=== PATIENT | female | born 1960 | race Caucasian/White ===

== ENCOUNTER → 2018-04-14 | Outpatient (CLI) | payer BC ==
[~2018-04-14] VITALS: Ht 162.6 cm; Wt 120.2 kg
[~2018-04-14] MED LIST: ACETAMINOPHEN-1 EAC1 PO; ACYCLOVIR 400400 MG PO; ADULT LOW DOSE81 MG PO; AUGMENTIN 875875 MG PO; AZITHROMYCIN 2250 MG PO; CALCIUM 500 +1 EAC4 PO; CIPRO500 MG PO; CIPROFLOXACIN500 M3 GT; COLESTIPOL HCL1 G1 PO; COUMADIN 2 MG TA2 M1 PO; COUMADIN 3 MG TA3 M1 PO; COUMADIN 3 MG TA3 MG PO; COZAAR100 MG PO; DESIPRAMINE 50M50 M1 PO; DYAZIDE PO; FISH OIL 1,001000 MG PO; FLAGYL500 MG PO; HCTZ; HYDRALAZINE 2525 MG PO; HYDROCHLOROTHIA25 M2 PO; HYDROCODON-ACE1 EAC7 PO; HYDROCODONE-APA1 TA1 PO; IBUPROFEN 800800 M1 PO; LEVOXYL125 MCG PO; LEXAPRO; LEXAPRO20 MG PO; LIPITOR 20 MG T20 M1 PO; LIPITOR40 MG PO; LISINOPRIL20 MG PO; LISINOPRIL40 MG PO; LOPRESSOR PO; MEDROLDOSEPACK PO; NORCO 5-325 TA1 EACH PO; NORFLEX100 MG PO; NORVASC10 MG PO; NORVASC5 MG PO; OSCIMIN0.125 M1 PO; PEPCID40 MG PO; PERCOCET 5-3251 EACH PO; POTASSIUM20; PREDNISONE 20 M20 M1 PO; PREMARIN0.3 MG PO; PRINIVIL20 MG PO; PROMETHAZINE-C120 ML PO; PROTONIX40 M2 PO; PROZAC; ROBAXIN 750 MG750 M1 PO; RYTHMOL; RYTHMOL SR325 MG PO; SAVELLA50 MG PO; SIMVASTATIN40 MG PO; SORINE 80 MG TA80 M1 PO; SORINE 80 MG TA80 MG PO; SPIRONOLACTONE50 MG PO; SYNTHROID PO; SYNTHROID125 MCG PO; TESSALON PERLE100 M1 PO; TOPROL XL25 MG PO; TRAMADOL 50 MG50 MG PO; ULTRAM 50MG TAB50 MG PO; WELLBUTRIN XL150 MG PO; XARELTO20 MG PO; ZOFRAN ODT4 MG PO; ZOFRAN4 MG PO
--- NOTE | ~2018-04-14 | HPC ---
[facility] [address] [place] [address] PAIN MANAGEMENT CONSULTATION Name: BERTIN CHRISTIE Room #: REG ANDERKristen Diane.#: [id number] Admission: 04/14/18 Attend Phys: Issa Nova MD Discharge: Date of : 62 Report #: [id number] THIS REPORT FOR: //name// CC: Daniela Nova DATE OF SERVICE: 04/14/2018 CHIEF COMPLAINT: Back and leg pain. HISTORY OF PRESENT ILLNESS: The patient is a 57-year-old female who has been referred to the pain clinic for evaluation of back and leg pain. The patient states that her pain is in the low back area. She describes it as sharp. States that she stepped on a cement divider in the parking lot. She fell down onto her buttocks area. She has been having pain and discomfort, which has been quite problematic since that time. Notes that the pain is worse while sitting as well as lying down, walking can be problematic, bending is problematic. Pain is better if she is sitting for a short period of time. Lying down at times can be helpful for a short periods of time. Rates her pain as a 9-10. Sometimes feels like it is 10 or greater. Describes it as continuous, steady, constant, rhythmic, burning, shooting, aching, crushing, throbbing and stabbing. Most of the pain and discomfort involves the left side. Denies any back surgeries. Denies any bowel or bladder changes. States that she had gone through some physical therapy without long-term benefit. Has tried medications like Tylenol without significant improvement. The patient has atrial fibrillation and is on a blood thinner medication, so she is not taking nonsteroidal anti-inflammatory medications. ALLERGIES: No known drug allergies. MEDICATIONS: Xarelto 20 mg, spironolactone 50 mg, levothyroxine 0.125 b.i.d., Lexapro 20 mg, total of 40 mg daily, sotalol 80 mg b.i.d., Norvasc 5 mg, Cozaar 100 mg, Wellbutrin 150 mg, hydralazine 25 mg t.i.d. PAST MEDICAL HISTORY: Atrial fibrillation, obstructive sleep apnea, hypothyroidism, hypertension, depression/anxiety, right carotid artery disease, heart murmur, irritable bowel syndrome, diverticulosis, osteopenia on DEXA, 01/24/2018, degenerative joint disease of lumbar radicular history. Severe diverticulitis -- GI bleed, 03/2017. SURGICAL HISTORY: 1. section. 2. Hysterectomy. 3. Plates in left foot. 4. Right shoulder, 12/15/2014[place] [address] PAIN MANAGEMENT CONSULTATION Name: BERTIN CHRISTIE MARLINE Room #: REG ERIN Cabrales#: [id number] Admission: 04/14/18 Attend Phys: Issa Nova MD Discharge: Date of : 62 Report #: [id number] 5. Cholecystectomy. 6. Tonsillectomy. 7. Lumpectomy of left breast. 8. Eye surgery. FAMILY HISTORY: Mother was at age 74 with COPD, stroke, coronary artery disease. Father at age 64 with lung disease, emphysema, colon cancer. Sister alive and brother alive, both bipolar, heart attack. Daughter alive. Son alive. Three brothers, three sisters, one son and one daughter. One brother by myocardial infarction. SOCIAL HISTORY: She is a customer host. She has been off work. Has not worked since 04/06/2018. She is currently hog worker's compensation. REVIEW OF SYSTEMS: General, a 12-point review generally well, recent weight change, fever/night sweats, wears glasses/contacts, glaucoma. The patient has had eye surgery. Cardiovascular: Atrial fibrillation, nervousness, depression, thyroid disease. LABORATORY DATA: MRI of lumbar spine dated 02/05/2018 reveals: 1. Axial views at L5-S1 showed no focal disk protrusion. Central canal and neural foramen are maintained. There is facet spurring with mild to moderate facet degenerative change. There is some ligamentum flavum hypertrophy. L4-L5 shows facet spurring and degenerative changes with some ligamentum flavum hypertrophy. There is no focal disk protrusion. Central canal shows minimal triangular narrowing. Neural foramen are maintained. Central canal measures 10 mm. 2. L3-L4 shows no focal disk protrusion. Central canal and neural foramen are maintained. There is mild facet degenerative change with ligamentum flavum hypertrophy. L2-L3 shows no focal disk protrusion. Central canal and neural foramen are maintained. A large right mid region kidney cyst is noted measuring 3.3 x 2.4 cm. Multiple left kidney ducts or cysts are seen with medial measuring 16 mm and lateral measuring 15 mm. PAIN CLINIC ASSESSMENT: 1. History of osteoarthritis. The patient has been diagnosed with degenerative joint disease in the low back area. 2. Height 5 feet 4 inches. Weight 265 pounds, BMI is 45. 3. VITAL SIGNS: Blood pressure 146/73, pulse 60, respiratory rate 20, room air saturation 98%. 4. Pain intensity /10. 5. Fall risk. The patient fell in the last 3 months, landing on her buttocks with pain in the low back area at this juncture. 6. Blood thinner. The patient is on Xarelto. 7. Hypertension. The patient is being treated for hypertension. 8. Opioid therapy. The patient is not on an opioid contract. [facility] [address] [place] [address] PAIN MANAGEMENT CONSULTATION Name: BERTIN CHRISTIE MARLINE Room #: REG [facility].#: [id number] Admission: 04/14/18 Attend Phys: Issa Nova MD Discharge: Date of : 62 Report #: [id number] 9. Risk assessment tool 11/11 low risk. 10. Functional assessment showing moderate problems with activities of daily living secondary to pain. 11. Recreational drug use. The patient denies use of recreational drugs. 12. Tobacco: The patient has never smoked cigarettes. 13. Alcohol: The patient denies use of alcoholic beverages. PHYSICAL EXAMINATION: GENERAL: The patient is a well-developed, somewhat obese white female. She is alert and oriented x 3. Affect appears appropriate. Speech is fluent. HEENT: Normocephalic, atraumatic. Extraocular eye muscles intact. Sclerae are nonicteric. Hearing within normal limits. Mucous membranes are moist ____. NECK: Without adenopathy or bruits, reasonable range of motion. CHEST: Clear to auscultation and distant lung sounds given the patient's body habitus. ABDOMEN: Protuberant. MUSCULOSKELETAL: Without significant scoliosis, kyphosis or lordosis. The patient has some pain and discomfort in the left as well as in the right posterior superior iliac spine areas and along the L4-5/S1 dermatomal distribution. Muscle strength in the upper extremities is judged to be 5/5 for the major muscle groups in the upper extremity. Deep tendon reflexes are +1 for the biceps bilaterally. Difficult to appreciate triceps and brachioradialis. Tendon reflexes asymmetry is noted in the upper extremities without complaints of sensory deficits. Lower extremity without sensory deficits. Muscle strength is judged to be 5/5 for the major muscle groups. Deep tendon reflexes are +2 at the knees and +1 to trace at the ankles bilaterally. The patient has some skin changes with some darkening on the anterior portions of her shins somewhat consistent with pigmentation from multiple bruises over a number of years. Has a somewhat new bruise in the anterior hoffman area on the left. Forward bending to about 30 degrees causes the patient to phonate and complaining of significant pain in the low back area. Left and right lateral bending, left and right lateral rotation, which were all limited secondary to the patient's body habitus, this caused a similar pouring of phonation secondary to pain and discomfort by the patient. The patient noted some increased back discomfort with the Александр's maneuver. Anterior spring test was negative. Lateral spring test was negative. Left and right lateral leg held in a dependent position on the right cause some increased low back discomfort. The patient was unable to let the left leg hang in a dependent position secondary to increased pain in the low back area. The patient has had some difficulty standing on her toes, unable to walk or stand on her heels. No true L5-S1 or L4-L5 dermatomal distribution with sensory changes were noted. Palpation in the area of the posterior superior iliac spine on the left and the right reproduces the patient's discomfort. She recoiled in a fashion consistent with trigger point pain and discomfort. IMPRESSION: [facility] [address] [place] [address] PAIN MANAGEMENT CONSULTATION Name: BERTIN CHRISTIE Room #: LITO Cabrales#: [id number] Admission: 04/14/18 Attend Phys: Issa Nova MD Discharge: Date of : 62 Report #: [id number] 1. Myofascial pain, low back area with trigger point. 2. Atrial fibrillation. 3. Obesity. 4. Obstructive sleep apnea. 5. Hypothyroidism. 6. Hypertension. 7. Depression/anxiety. 8. Irritable bowel syndrome. 9. Diverticulitis with history of gastrointestinal bleed. 10. Osteopenia. 11. Degenerative joint disease with findings as listed in the MRI above. RECOMMENDATIONS: We have discussed treatment options with the patient. Risks and benefits of a trigger point injection were discussed. Possible complications of the procedure were reviewed. 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 If she is able to decrease her use of Xarelto for a week, she will return to the pain clinic at which time she will undergo trigger point injections for the myofascial pain. It appears that is more myofascial at this juncture than radiculopathy. She is not showing significant changes of L4-L5 or L5-S1 dermatomal findings at this juncture. She will follow up in the pain clinic for treatment in the near future. <ELECTRONICALLY SIGNED> By: Issa Nova MD 04/21/18 1332 [id number] 2036 Issa Nova MD /[facility]
[2018-04-14 10:21] VITALS: BP 146/73
== END ==
LOC: PAIN 06:47
DX: M47.816 Spondylosis without myelopathy or radiculopathy, lumbar region (principal); I48.91 Unspecified atrial fibrillation; E03.9 Hypothyroidism, unspecified; M85.80 Other specified disorders of bone density and structure, unspecified site; M79.1 Myalgia; K57.92 Diverticulitis of intestine, part unspecified, without perforation or abscess without bleeding; K58.9 Irritable bowel syndrome, unspecified; G47.33 Obstructive sleep apnea (adult) (pediatric); E66.09 Other obesity due to excess calories; F32.9 Major depressive disorder, single episode, unspecified; F41.9 Anxiety disorder, unspecified

== ENCOUNTER → 2018-04-23 | Outpatient (CLI) | payer BC ==
[~2018-04-23] VITALS: Ht 162.6 cm; Wt 122.2 kg
--- NOTE | ~2018-04-23 | HPC ---
[facility] [address] [place] [address] PAIN MANAGEMENT CONSULTATION Name: BERTIN CHRISTIE MARLINE Room #: REG ERIN Cabrales#: [id number] Admission: 04/23/18 Attend Phys: Issa Nova MD Discharge: Date of : 62 Report #: [id number] THIS REPORT FOR: //name// CC: Daniela Nova DATE OF SERVICE: 04/23/2018 FOLLOWUP COMPLAINT: "Here for an injection in my back. My doctor said I could stop the Xarelto." FOLLOWUP HISTORY: The patient is a 57-year-old female, who has been seen in the pain clinic because of pain and discomfort in her back. She states that she has pain, which she describes as quite sharp. It is aching. Limits her ability to engage in activities of daily living. As you recall, she was walking. She slipped in a parking lot. Fell on a cement divider. She landed on her buttocks. She has had pain and discomfort, which continues to be problematic. Limited in her ability to bend forward. Sleeping is problematic, getting in and out of bed is difficult. Sitting for a prolonged period of time is uncomfortable as well. Rates her pain as an 8-9/10. Denies any problems with her bowel or bladder. As you recall, she has undergone physical therapy without significant benefit. Has atrial fibrillation and is on Xarelto. She has spoken with her cardiac physician. He states that she can stop her Xarelto. She has stopped it and has returned to the pain clinic for treatment. ALLERGIES: No known drug allergies. CURRENT MEDICATIONS: Xarelto 20 mg, which has been held, spironolactone 50 mg, levothyroxine 0.125 mg b.i.d., Lexapro 20 mg total of 40 mg daily, sotalol 80 mg b.i.d., Norvasc 5 mg, Cozaar 100 mg, Wellbutrin 150 mg, hydralazine 25 mg t.i.d. PAIN CLINIC ASSESSMENT: 1. History of osteoarthritis. The patient has been diagnosed with degenerative joint disease in the low back area. 2. Height 5 feet 4 inches, weight 269 pounds, BMI is 46. 3. Vital Signs: Blood pressure 157/79, pulse 60, respiratory rate 18, room air saturation 97%. 4. Pain intensity 8-07/19. 5. Fall risk. The patient fell landing on her buttocks and as a result continues to have pain. 6. Blood thinning medication. The patient is on Xarelto as a blood thinner. She has not taken it for a number of days with preparation for an injection. 7. History of hypertension. The patient is being treated for hypertension. 8. Opioid therapy. The patient is not on an opioid regimen. 9. Risk assessment tool 11/11, which is low for use of opioids. 10. Functional assessment tool showing pain and problems with activities [address] [address] PAIN MANAGEMENT CONSULTATION Name: BERTIN CHRISTIE MARLINE Room #: REG [facility] Keron#: [id number] Admission: 04/23/18 Attend Phys: Issa Nova MD Discharge: Date of : 62 Report #: [id number] of daily living because of the pain. 11. Recreational drug use. The patient denies use of recreational drugs. 12. Tobacco: The patient has never smoked. 13. Alcohol: The patient denies use of alcoholic beverages. PHYSICAL EXAMINATION: GENERAL: The patient is a well-developed, well-nourished white female. Somewhat obese. She is alert and oriented x 3. Her affect is appropriate. Speech is fluent. HEENT: Normocephalic, atraumatic. Extraocular eye muscles intact. Sclerae nonicteric. Hearing is within normal limits. Mucous membranes are moist. NECK: Without adenopathy or bruits, reasonable range of motion. CHEST: Clear to auscultation. Distant sounds. Given the patient's body habitus. HEART: Regular rate and rhythm. ABDOMEN: Protuberant. MUSCULOSKELETAL: Without significant kyphosis, lordosis, or scoliosis. The patient has pain and discomfort in the lower portion of her back. Palpation in the left posterior superior iliac spine area and right posterior superior iliac spine area, both caused significant pain and discomfort. The patient is able to bend forward to about 35 degrees then complains of pain and discomfort in the lower portion of her back and limits her continued flexibility. Muscle strength in the upper extremities judged to be 5/5 for the major muscle groups. Deep tendon reflexes +2 at the knees. Trace at the ankles bilaterally. The patient has some changes in pigmentation of the anterior portion of her legs, which appears to be consistent with that which results from chronic bruising. IMPRESSION: 1. Myofascial pain, lower back area with trigger points, left and right. 2. Atrial fibrillation. 3. Obesity. 4. Obstructive sleep apnea. 5. Hypothyroidism. 6. Hypertension. 7. Depression/anxiety. 8. Irritable bowel syndrome. 9. Diverticulitis with history of gastrointestinal bleed. 10. Osteopenia. 11. Degenerative joint disease. RECOMMENDATION: We discussed treatment options with the patient. The patient has myofascial pain as a component at this juncture. It involves the left as well as the right low back area. Palpation in the area of the left posterior superior iliac spine area and gluteus raeann and latissimus dorsi cause reproduction of pain and discomfort on the left as well as on the right. We have discussed the possible complication of the procedure. Discussed the [facility] [address] [place] [address] PAIN MANAGEMENT CONSULTATION Name: SHAHNAZBERTIN MARLINE Room #: REG ERIN Cabrales#: [id number] Admission: 04/23/18 Attend Phys: Issa Nova MD Discharge: Date of : 62 Report #: [id number] possible consequences, which could include infection, increased muscle soreness, headache, worsening of pain, bleeding. The patient elects to proceed. PROCEDURE NOTE: The patient was placed in the sitting position. Her back was sterilely prepped with the chlorhexidine solution and allowed to dry. The left posterior superior iliac spine area near the gluteus raeann and latissimus dorsi were palpated. The trigger point was noted. A 25-gauge needle was then advanced into the area of discomfort. After the patient stated that we were indeed in the trigger point area, an aspiration was performed. There was no bleeding. A total of 80 mg Depo-Medrol and 10 mL of 0.5% bupivacaine was injected. The contralateral right side was treated in a like fashion. The trigger point was identified in the area of the gluteus raeann posterior superior iliac spine and latissimus dorsi. After appropriate identification, a 25-gauge needle was advanced into this area. The patient states that this was in the area of the trigger point. Aspiration was performed. There was no heme. Total of 80 mg Depo-Medrol and 10 mL of 0.5% bupivacaine was injected. The patient tolerated the procedure well. There were no complications. A Band-Aid was placed at the site. The patient was then taken to the recovery room where she remained for an appropriate amount of time. She will follow up in the future as needed. We would like to thank you for letting us participate in her care. We hope she continues to improve. The patient's pain decreased to 5 at the time of discharge. <ELECTRONICALLY SIGNED> By: Issa Nova MD 04/29/18 0936 1356 1830 Issa Nova MD /nt
[2018-04-23 10:46] VITALS: BP 157/79
== END ==
LOC: PAIN 06:48
DX: M79.1 Myalgia (principal); I10 Essential (primary) hypertension; I48.91 Unspecified atrial fibrillation; G47.33 Obstructive sleep apnea (adult) (pediatric); E03.8 Other specified hypothyroidism; M85.80 Other specified disorders of bone density and structure, unspecified site; K58.8 Other irritable bowel syndrome; F31.89 Other bipolar disorder; E66.9 Obesity, unspecified; Z79.899 Other long term (current) drug therapy; E78.4 Other hyperlipidemia

== ENCOUNTER → 2018-05-28 | Outpatient (CLI) | payer BC ==
[~2018-05-28] VITALS: Ht 162.6 cm; Wt 123.8 kg
--- NOTE | ~2018-05-28 | HPC ---
[facility] [address] [place] [address] PAIN MANAGEMENT CONSULTATION Name: BERTIN CHRISTIE MARLINE Room #: REG ERIN Diane.#: [id number] Admission: 05/28/18 Attend Phys: Issa Nova MD Discharge: Date of : 62 Report #: [id number] THIS REPORT FOR: //name// CC: Daniela Nova DATE OF SERVICE: 05/28/2018 FOLLOWUP COMPLAINT: The pain was better for a number of days. "I am still having some pain in the left and right low back area. I have been going to physical therapy. Physical therapy is hard. Overall, I think things are getting somewhat better, but still really slowly." FOLLOWUP HISTORY: As you recall, the patient is a 58-year-old female. States that she was getting out of her car. She stepped out and fell on a concrete divider. Continues to have pain and discomfort in the sacral area. Denies any pain that is radiating down into her legs. She rates her pain as a 6/10 at this juncture. She has not fallen since we saw her last. Still feels that she is unable to engage in activities of daily living to the level that she would like. She has stopped her Xarelto with the intent of undergoing injections or treatment today. ALLERGIES: No known drug allergies. MEDICATIONS: Xarelto 20 mg, which has been held, spironolactone 50 mg, levothyroxine 0.125 mg b.i.d., Lexapro 20 mg for a total of 40 mg daily, sotalol 80 mg b.i.d., Norvasc 5 mg, Cozaar 100 mg, Wellbutrin 150 mg, and hydralazine 25 mg t.i.d. PAIN CLINIC ASSESSMENT: 1. History of osteoarthritis. The patient has been diagnosed with degenerative joint disease in her low back. 2. Height 5 feet 4 inches, weight 273 pounds, BMI is 46. 3. Vital signs: Blood pressure 201/104, pulse 60, respiratory rate 16, room air saturation 98%. The patient states that her blood pressures are normally in the 150s range. States that she does experience increased nervousness when going to the physician's office. 4. Pain intensity 04/18. 5. Fall risk. The patient did fall within the last 3 months and has pain and discomfort in the low back area. 6. Blood thinner. The patient has been using Xarelto for atrial fibrillation. She is not on it at this juncture with the intent on undergoing an injection. 7. History of hypertension. The patient is being treated for hypertension. 8. Opioid therapy greater than 6 weeks. The patient is [place] [address] PAIN MANAGEMENT CONSULTATION Name: BERTIN CHRISTIE MARLINE Room #: REG CLI Keron#: [id number] Admission: 05/28/18 Attend Phys: Issa Nova MD Discharge: Date of : 62 Report #: [id number] 9. Risk assessment tool 11/11. 10. Functional assessment tool . 11. Recreational drug use. The patient denies use of recreational drugs. 12. Tobacco: The patient denies use of tobacco. She has never smoked. 13. Alcohol. The patient denies frequent use of alcoholic beverages. PHYSICAL EXAMINATION: GENERAL: The patient is a well-developed, somewhat obese white female, appears her stated age. She is alert and oriented x 3. Her affect is appropriate. Speech is fluent. HEENT: Normocephalic, atraumatic. Extraocular eye muscles intact. Sclerae nonicteric. Hearing is within normal limits. Mucous membranes are moist. NECK: Without adenopathy or bruits with reasonable range of motion. CHEST: Clear to auscultation. Distant heart sounds difficult to appreciate secondary to the patient's body habitus. HEART: Regular rate and rhythm. ABDOMEN: Protuberant. MUSCULOSKELETAL: Without significant kyphosis, lordosis, or scoliosis. The patient has pain and discomfort in lower portion of her back. Palpation in the area of the left and right posterior superior iliac spine areas does reproduce pain and discomfort. The patient denies any significant pain radiating down into her legs in a dermatomal distribution. Muscle strength in the upper extremity judged to be 5/5 for the major muscle groups. Deep tendon reflexes +2 at the knees, trace at the ankles bilaterally. The patient notes some pigmentation changes in the anterior portion of her legs, which appear to be from chronic bruising. IMPRESSION: 1. Myofascial pain, lower back, improved with trigger point injections left as well as the right. 2. Atrial fibrillation. 3. Obesity. 4. Obstructive sleep apnea. 5. Hypothyroidism. 6. Hypertension. 7. Depression/anxiety. 8. Irritable bowel syndrome. 9. Diverticulitis with history of gastrointestinal bleed. 10. Osteopenia. 11. Degenerative joint disease. RECOMMENDATIONS: We discussed treatment options with the patient. She continues to have some pain and discomfort in the low back area. She did note some improvement with the injections as well as with physical therapy. The patient has been advised that physical therapy is going to be quite important in her recovery. We explained that myofascial pain can be somewhat involved in its [address] [address] PAIN MANAGEMENT CONSULTATION Name: BERTIN CHRISTIE Room #: REG [facility] [id number] Admission: 05/28/18 Attend Phys: Issa Nova MD Discharge: Date of : 62 Report #: [id number] course. Hopefully, she will notice that things continue to improve. We have explained that another injection in the trigger point areas could be beneficial. She states that she has stopped taking Xarelto in hopes of proceeding with another injection. She had no complication from the last injection. Has not noticed any concerns with use of the steroid injections. PROCEDURE NOTE: The patient was taken to the procedure area. Risks and benefits of the procedure were again reviewed. They include but are not limited to infection, worsening of pain, no improvement in pain, and nerve damage. The patient elects to proceed. PROCEDURE NOTE: She was placed in the sitting position. Her back was sterilely prepped with a chlorhexidine solution and allowed to dry. A trigger point was noted in the left posterior superior iliac spine area near the gluteus raeann and latissimus dorsi. A 25-gauge needle was then advanced into this area. The patient states that this did reproduce her discomfort. Total of 8 mL 0.5% bupivacaine and 60 mg steroid 20 mg triamcinolone, and 40 mg Depo-Medrol was injected on the left side and the right side was sterilely prepped in the same fashion. Trigger point was noted. A 25-gauge needle was then advanced into the area of discomfort. The patient states that this reproduced her discomfort. Total of 60 mg steroid 20 mg triamcinolone/40 mg Depo-Medrol was injected. The patient tolerated the procedure well. She remained in the pain clinic for an appropriate amount of time. She will follow up in the future as needed. We would like to thank you for letting us participate in her care. She will continue with physical therapy. By: 1602 2037 Issa Nova MD /[facility]
[2018-05-28 08:03] VITALS: BP 201/104
== END | disposition home or self-care (01) ==
LOC: PAIN 06:46
DX: M79.1 Myalgia (principal); I10 Essential (primary) hypertension; E03.9 Hypothyroidism, unspecified; I48.91 Unspecified atrial fibrillation; E66.09 Other obesity due to excess calories; G47.33 Obstructive sleep apnea (adult) (pediatric); F32.9 Major depressive disorder, single episode, unspecified; F41.9 Anxiety disorder, unspecified; M19.90 Unspecified osteoarthritis, unspecified site; M81.0 Age-related osteoporosis without current pathological fracture; Z79.01 Long term (current) use of anticoagulants; Z87.19 Personal history of other diseases of the digestive system; Z79.899 Other long term (current) drug therapy; Z79.891 Long term (current) use of opiate analgesic; Z68.42 Body mass index [BMI] 45.0-49.9, adult

== ENCOUNTER → 2018-09-03 | Outpatient (CLI) | payer BC ==
[~2018-09-03] VITALS: Ht 162.6 cm; Wt 112.5 kg
[~2018-09-03] MED LIST changes: +OZEMPIC0.25 MG/0. SUBQ; +PROPAFENONE 15150 MG PO; +SYNTHROID112 MC1 PO; +TYLENOL EXTRA500 MG PO
[2018-09-03 13:18] VITALS: BP 117/59
== END | disposition home or self-care (01) ==
LOC: PAIN 07:28
DX: M79.18 Myalgia, other site (principal); I10 Essential (primary) hypertension; I48.91 Unspecified atrial fibrillation; E78.5 Hyperlipidemia, unspecified; Z79.899 Other long term (current) drug therapy; Z79.01 Long term (current) use of anticoagulants

== ENCOUNTER → 2018-10-18 | Outpatient (CLI) | payer BC ==
[~2018-10-18] MED LIST changes: +CENTANY30 GM TOP; +CYMBALTA30 MG PO; +METOPROLOL SUCC50 MG PO; +PRADAXA150 MG PO; +VIBRAMYCIN 100100 M2 PO
[2018-10-18 07:43] LABS: HEMATOCRIT 38.8 % (37.0-47.0); HEMOGLOBIN 13.2 gm/dL (12.0-15.0); MCH 30.2 pg (26.0-34.0); MCHC 34.1 g/dL (28.0-37.0); MCV 88.6 fL (80.0-100.0); RBC 4.38 mil/uL (4.20-5.00); RDW 13.8 % (10.5-14.5); WBC 4.8 thou/uL (4.0-11.0)
[2018-10-18 08:00] LABS: ALBUMIN 3.6 g/dL (3.4-5.0); CALCIUM 9.1 mg/dL (8.5-10.1); CREATININE 0.8 mg/dL (0.6-1.0); POTASSIUM 4.4 mmol/L (3.5-5.1); TOTAL BILIRUBIN 0.4 mg/dL (<0.1-1.0)
== END ==
LOC: CAT 07:14
PROVIDERS: Internal Medicine Cardiovascular Disease
DX: I48.91 Unspecified atrial fibrillation (principal); K86.89 Other specified diseases of pancreas; M47.814 Spondylosis without myelopathy or radiculopathy, thoracic region

== ENCOUNTER 2018-11-03 06:33 | Observation (INO) | payer BC ==
[~2018-11-03] VITALS: Ht 162.6 cm; Wt 111.6 kg
[2018-11-03] VITALS (12 sets, daily range): BP systolic 103–160; BP diastolic 56–89
[2018-11-03] MEDS ORDERED: SYNTHROID125 MC1 PO (07:17)
[2018-11-03 07:20] LABS: ABSOLUTE NEUTROPHILS 3.1 thou/uL (1.4-8.2); HEMOGLOBIN 13.7 gm/dL (12.0-15.0)
[2018-11-03 07:21] LABS: BASOPHILS 0.7 % (0.0-2.0); EOSINOPHILS 1.4 % (0.0-3.0); HEMATOCRIT 40.5 % (37.0-47.0); LYMPHOCYTES 28.8 % (24.0-44.0); MCHC 33.8 g/dL (28.0-37.0); MCV 88.7 fL (80.0-100.0); MONOCYTES 7.7 % (1.0-8.0); PLATELET COUNT 215 thou/uL (150-400); POLYS 61.4 % (36.0-66.0); RBC 4.57 mil/uL (4.20-5.00); RDW 14.4 % (10.5-14.5); WBC 5.1 thou/uL (4.0-11.0)
[2018-11-03] MEDS ORDERED: PRADAXA150 MG PO (07:21)
[2018-11-03 07:27] LABS: CALCIUM 9.1 mg/dL (8.5-10.1); CREATININE 0.9 mg/dL (0.6-1.0); POTASSIUM 3.5 mmol/L (3.5-5.1)
[2018-11-03 07:32] LABS: ALBUMIN 3.8 g/dL (3.4-5.0); TOTAL BILIRUBIN 0.9 mg/dL (<0.1-1.0)
[2018-11-03 07:46] LABS: PROTIME 9.7 Seconds (9.3-11.4)
--- NOTE | 2018-11-03 18:42 | NUR ---
ASSESSMENT DOCUMENTED. VSS. NSR ON THE MONITOR. PAIN IN BACK FROM REPORTED CHRONIC BACK PAIN. NO S/SX OF RETROPERITONEAL BLEED. R GROIN CDI. PT OFF BEDREST AT 1830. PT SITTING ON SIDE OF BED WITH CALL LIGHT IN REACH. WILL CONTINUE TO MONITOR.
[2018-11-04 00:35] VITALS: BP 140/70
[2018-11-04 00:55] VITALS: BP 140/70
[2018-11-04] MEDS ORDERED: NORCO 5-325 TA1 EACH PO (01:09)
--- NOTE | 2018-11-04 03:22 | NUR ---
23:00> PAIN RE-ASSESSMENT AFTER ACETAMINOPHEN; PT. WITH CLOSE EYES; 23:35> PT. REQUESTED PAIN MEDICATION; EXPLAINED THAT IT IS NOT TIME DUE TO ACETAMINOPHEN IS ORDERED Q4H AND IT WAS GIVEN AROUND 21:00; HYDROCONE ORDERED Q6H AND GIVEN AROUND 18:30; PT. EXPRESS UNDERSTANDING. 00:50> NURSE INFORMED PT. REQUESTED PAIN MEDICATION; ORDERED REVIEWED; PT. EXPRESSED BACK AND R. LEG PAIN, REQUESTED HYDROCONE, NURSE ASKED MEDICATION TAKEN AT HOME, PT REPLIED ACETAMINOPHEN AND 2 HYDROCONE 5-325 MG PRN; MEDICATION NOT LISTED ON HOME MEDICATION LIST; PT ST "I DO NOT TAKE IT FREQUENTELY, THAT IS WHY I DID NOT LIST IT"; NURSE EXPLAINED THE IMPORTANCE OF MAINTAINING AN UPDATED HOME MEDICATION LIST. 01:05> 2 HYDROCONE 5-325 MG GIVEN; NURSE ASKED THE LAST TIME OF TAKEN HYDROCONE AT HOME; PT. RAISED VOICE AND SHOWED IRRITABILITY; NURSE EXPLAINED IT IS IMPORTANT; PT. REQUESTED NURSE TO SHUT THE COMPUTER DOWN AND LEAVE THE ROOM; NURSE ASKED PT. IF DESIRE CHARGE NURSE IN ROOM; PT. ST "YES"; NURSE LEFT AND CHARGE NURSE INFORMED.
[2018-11-04 04:53] VITALS: BP 161/80
[2018-11-04] MEDS ORDERED: FLECAINIDE ACET50 M1 PO (09:00)
[2018-11-04 09:45] VITALS: BP 175/77
--- NOTE | 2018-11-04 10:21 | NUR ---
ASSESSMENT CHARTED - MEDS PER JAN - NO CO'S OF NAUSEA - LILLY DIET AND FLUIDS. GIVEN LORTAB FOR CO'S OF BACK/LEG PAIN WITH MOD RELIEF. PT UP AD LUCIANA IN ROOM. PT HOME THIS AM - INSTRUCTION RE HOME MEDS/ CARE /FOLLOW UP GIVEN TO PATIENT - STATED UNDERSTANDING OF INSTRUCTION GIVEN. MONITOR AND IV REMOVED PRIOR TO D/C. NO CO'S AT TIME OF D/C.
--- NOTE | 2018-11-05 15:02 | EKG ---
[address] [address] ELECTROCARDIOGRAM REPORT Name: BERTIN CHRISTIE MARLINE Room #: 209-P [facility].#: [id number] Admission: 11/03/18 Attend Phys: Matthew Harris MD Discharge: 11/04/18 Date of : 62 Report #: [id number] THIS REPORT FOR: //name// [facility] Test Date: 2018-11-03 Test Time: 13:16:51 Pat Name: BERTIN CHRISTIE Department: Room: 209 Gender: F Cleat Maker: SOL : 1960 Requested By: Matthew Harris Order Number: [id number] MD: Matthew Harris Measurements Intervals [place] Rate: 63 P: 5 NE: 157 QRS: -27 QRSD: 106 T: -58 QT: 471 QTc: 483 Interpretive Statements Sinus rhythm LVH with secondary repolarization abnormality No previous ECG available for comparison Electronically Signed On 11-05-2018 15:02:12 TELEVISION MAINTENANCE WORKER by Matthew Harris [email or web address] <ELECTRONICALLY SIGNED> By: Matthew Harris MD 11/05/18 1502 1316 15 Matthew Harris MD /DYLAN
--- NOTE | 2018-11-12 14:52 | D ---
[facility] [place] [address] DISCHARGE SUMMARY Name: BERTIN CHRISTIE MARLINE Room #: 209-P [facility] Dick MFawn#: [id number] Admission: 11/03/18 Attend Phys: Matthew Harris MD Discharge: 11/04/18 Date of : 62 Report #: [id number] THIS REPORT FOR: //name// CC: Mustapha Mccoy'David Harris DISCHARGE DIAGNOSIS: Paroxysmal atrial fibrillation. PROCEDURES PERFORMED: AFib ablation. HISTORY: The patient is a 58-year-old with a history of paroxysmal atrial fibrillation who has had recurrence despite antiarrhythmic drugs. She is here for an ablation. Today, she underwent successful isolation of the pulmonary veins. She had evidence of a left common ostium in the right superior and right inferior pulmonary vein, which were all successfully isolated using the cryoballoon. Post-ablation and EP study was performed on isoproterenol and she had no other inducible arrhythmias. HOSPITAL COURSE: Post-ablation, the patient went to the PACU and then subsequently to the CCU. She did well overnight. On the day of discharge, she denied any chest pain or shortness of breath. She had some mild right groin discomfort. PHYSICAL EXAMINATION: GENERAL: She was in no acute distress. HEENT: Oropharynx is clear. NECK: Supple with no thyromegaly. HEART: Regular rate and rhythm with no murmurs, rubs, gallops. LUNGS: Clear to auscultation bilaterally. ABDOMEN: Soft, nontender and her groin demonstrated some mild ecchymosis, but no hematoma. Telemetry revealed that she remained in sinus rhythm. As such, she was deemed stable for discharge home. The plans will be to continue on Pradaxa 150 mg b.i.d. She will also switch from propafenone, which is a t.i.d. drug to flecainide 50 b.i.d., which will be easier for her to take. She has had some intermittent hemorrhoidal bleeding on blood thinners in the past and she will call us if this becomes an issue. She previously has seen GI for this, underwent an endoscopy and it is believed this is related to some internal hemorrhoids. I recommended increasing her Colace. She will follow up with my nurse practitioner in 2 weeks and I will see her in 3 months. <ELECTRONICALLY SIGNED> By: Matthew Harris MD 11/12/18 1452 [id number] [id number] Matthew Harris MD /nt
--- NOTE | 2018-11-19 13:45 | P ---
[facility] [place] [address] PROCEDURE REPORT Name: BERTIN CHRISTIE MARLINE Room #: 209-P [facility] Dick Cabrales#: [id number] Admission: 11/03/18 Attend Phys: Matthew Harris MD Discharge: 11/04/18 Date of : 62 Report #: [id number] THIS REPORT FOR: //name// CC: Daniela Harris DATE OF SERVICE: 11/03/2018 PREOPERATIVE DIAGNOSIS: Paroxysmal atrial fibrillation. POSTOPERATIVE DIAGNOSES: 1. Paroxysmal atrial fibrillation. 2. Persistent superior vena cava. HISTORY: The patient is a 58-year-old female, with history of paroxysmal atrial fibrillation, here for an ablation. Her CT scan prior to the ablation demonstrated evidence of a persistent SVC. She is here for atrial fibrillation ablation. PROCEDURES PERFORMED: 1. Atrial fibrillation ablation, CPT code 90957. 2. Program stimulation and pacing after IV, CPT code 53301. 3. 3D mapping, CPT CODE 30975. 4. Arterial line placement, CPT code 02421. 5. Intracardiac echocardiogram, CPT code 93479. ANESTHESIA: The patient underwent general anesthesia with no anesthesia related complications. DESCRIPTION OF PROCEDURE: The patient underwent informed consent. We discussed the details of the procedure including the risks, which include, but not limited to, bleeding, vascular damage, cardiac perforation as well as stroke or LA. She understood these risks and is willing to proceed. As such, the patient was brought to the EP laboratory in a fasting and sedated state, prepped and draped in a sterile fashion. Prior to initiation of the procedure, I did have the lab perform a peripheral venogram from the right arm and there was evidence of a subclavian, then entered into the right atrium. Therefore, we would have a straightforward method to perform phrenic nerve pacing. After being prepped and draped in a sterile fashion, I obtained access to the right femoral vein x 3 and the right femoral artery x 1. In the right femoral vein, I placed an 8-Uzbek, 9-Uzbek and 7-Uzbek short sheath. In the right femoral artery, I placed a 5-Uzbek short sheath. Next, a decapolar catheter was placed easily in the coronary sinus and ice catheter was placed into the right atrium. At baseline, the patient was in sinus rhythm with sinus cycle length of 1200 milliseconds, UT interval 195 milliseconds, QRS duration 90 [facility] [address] [place] [address] PROCEDURE REPORT Name: BERTIN CHRISTIE [facility] Room #: 209-P [facility] Dick Cabrales#: [id number] Admission: 11/03/18 Attend Phys: Matthew Harris MD Discharge: 11/04/18 Date of : 62 Report #: [id number] milliseconds, QT interval 495 milliseconds. Next, using intracardiac ultrasound, I verified that there was left common, ostium and a right superior, right inferior pulmonary veins using [employer]oSound. We created a detailed 3D geometry of the left atrium and this was merged with the cardiac CT scan. The patient was systemically heparinized and a transseptal was performed using an SL1 sheath and Mercedes needle. Next, once in the left atrium, I created a detailed 3D geometry of the left atrium using a Lasso catheter and then, I exchanged the SL1 sheath for the cryo sheath and placed the cryoballoon into the left atrium. The patient had evidence of a left common ostium, which required a total of 4 freezes. I performed three 4-minute freezes in the vein isolated during the third freeze at 48 seconds. I performed an additional 3-minute freeze. While we were isolating the left common ostium, the patient was somewhat bradycardic and therefore, we initiated isoproterenol 1 mcg per minute to improve her heart rate. I then turned my attention to the right superior pulmonary vein. I performed 2 additional freezes of 120 and 110 seconds duration. Both of these freezes had temperatures of only -20 degrees. I therefore performed a third freeze and clocked the balloon and this resulted in a better seal. This vein isolated within 68 seconds and therefore, I performed a single 4-minute freeze. I then turned my attention to the right inferior pulmonary vein, which had a superior and inferior branch. The superior branch isolated within 90 seconds of the first freeze and I performed a single 4-minute freeze in this vessel. I then turned my attention to the inferior branch of this vessel and I performed a single 4-minute freeze and this vein was also isolated. While freezing the right-sided veins, I performed phrenic nerve pacing using the decapolar catheter placed in the superior vena cava. All veins were reinterrogated and there was evidence that the right superior vein had reconnected; therefore, I performed additional 4-minute freeze in this vein, reisolated within 84 seconds. POSTABLATION TESTING: Post ablation, the patient remained in sinus rhythm and had periods of junctional rhythm. The atrial rate was 775 milliseconds, UT interval was 200 milliseconds, QRS duration 93 milliseconds, QT interval 460 milliseconds and HV interval was 49 milliseconds. On isoproterenol AV block, was noted at 360 milliseconds, atrial ERP was noted at 260 milliseconds with [address] cycle length and AV eduardo ERP was noted at 220 milliseconds with [address] cycle length. There was no inducible SVT, atrial fibrillation or atrial flutter. As such, the procedure was concluded. Isoproterenol was discontinued. Using intracardiac ultrasound, I verified there was no pericardial effusion. The patient received systemic protamine and once the ACT was within acceptable range, catheters and sheaths were pulled. Hemostasis obtained. The patient awoke neurologically and hemodynamically intact. No complications and no significant bleeding. CONCLUSIONS: 1. Successful atrial fibrillation ablation with isolation of the left common ostium, right superior and right inferior pulmonary veins. [facility] [address] [place] [address] PROCEDURE REPORT Name: SHAHNAZBERTIN [facility] Room #: 209-P [facility]..#: [id number] Admission: 11/03/18 Attend Phys: Matthew Harris MD Discharge: 11/04/18 Date of : 62 Report #: [id number] 2. Evidence of persistent superior vena cava with evidence of communication from the right subclavian vein to the right atrium via a right-sided venogram. <ELECTRONICALLY SIGNED> By: Matthew Harris MD 11/19/18 1345 1409 [id number] Matthew Harris MD /nt
== END 2018-11-04 10:15 | disposition home or self-care (01) ==
LOC: CATH 06:33 → 2N 14:02 → ENTRNSPT 11-04 10:09 → EDTRNSPTSTS 11-04 10:10 → 2N 11-04 10:15
PROVIDERS: ADMIT Internal Medicine Cardiovascular Disease
DX: I48.0 Paroxysmal atrial fibrillation (principal); G47.33 Obstructive sleep apnea (adult) (pediatric); E66.01 Morbid (severe) obesity due to excess calories; I10 Essential (primary) hypertension; E78.5 Hyperlipidemia, unspecified; E03.9 Hypothyroidism, unspecified; Z79.899 Other long term (current) drug therapy
CPT/HCPCS: 62110; 62900; 65040; 70005